=== PATIENT | female | born 1930 | race Caucasian/White ===

== ENCOUNTER 2017-08-22 21:05 | Inpatient (IN) | payer MEDICARE, OTHER ==
[2017-08-22] MEDS ORDERED: Sodium Chloride 0.9% 10 ML Syringe FLUSH PRN (21:47)
[2017-08-22] MEDS ORDERED: Ondansetron 4 MG/2 ML SDV IVPUSH ONE (21:47)
[2017-08-22] MEDS ORDERED: Sodium Chloride 0.9% 1,000 ML IV ONE (21:47)
--- NOTE | 2017-08-22 21:56 | EDM.PDOC ---
ED HPI GENERAL MEDICAL PROBLEM - General Chief Complaint: General Stated Complaint: SHAKES Time Seen by Provider: 08/22/17 21:35 Source of Information: Reports: Patient History Limitations: Reports: No Limitations - History of Present Illness INITIAL COMMENTS - FREE TEXT/NARRATIVE: 87-year-old female presents for evaluation treatment of "shakes". She states that they developed today. She describes the shakes as more or a nervousness. Denies any tremors or rigors. She reports associated symptoms as a of a decreased appetite but denies any fevers, dysuria, nausea, vomiting, weakness, chest pain, cough, shortness of breath, headaches, vision changes, sore throat, earaches, weight loss or weight gain or any heat or cold intolerances. Patient lives at home by herself. Her friend Gerri is present for the entire area she feels that she'll more pale than normal. Patient is only on Remeron and Exelon. She is on Exelon for Alzheimer's. Primary care provider is Dr. Lester. Onset: Today - Related Data Allergies Allergy/AdvReac Type Severity Reaction Status Date / Time No Known Allergies Allergy Verified 02/14/16 08:54 Home Meds: Home Meds Mirtazapine 15 mg PO BEDTIME 08/22/17 [History] Rivastigmine 1 each TD DAILY 08/22/17 [History] Past Medical History [employer] History: Reports: Psychiatric History: Reports: Anxiety Social & Family History - Tobacco Use Smoking Status *Q: Never Smoker Second Hand Smoke Exposure: No - Caffeine Use Caffeine Use: Reports: Coffee - Recreational Drug Use Recreational Drug Use: No ED ROS GENERAL - Review of Systems Review Of Systems: See Below Constitutional: Reports: Decreased Appetite. Denies: Fever, Chills, Malaise, Weakness, Diaphoresis, Weight Loss, Weight Gain HEENT: Denies: Ear Pain, Throat Pain, Vision Change Respiratory: Denies: Shortness of Breath, Cough Cardiovascular: Denies: Chest Pain, Lightheadedness, Syncope Endocrine: Reports: Other (no heat or cold intolerances) GI/Abdominal: Denies: Abdominal Pain, Nausea, Vomiting : Denies: Dysuria, Flank Pain, Hematuria Neurological: Denies: Dizziness, Headache, Numbness, Syncope, Tingling, Weakness ED EXAM, GENERAL - Physical Exam Exam: See Below Exam Limited By: No Limitations General Appearance: Alert, WD/WN, No Apparent Distress, Thin Eye Exam: Bilateral Eye: Normal Inspection Ears: Normal External Exam, Normal Canal, Hearing Grossly Normal, Normal TMs Nose: Normal Inspection Throat/Mouth: Normal Inspection, Normal Lips, Normal Oropharynx, Normal Voice, No Airway Compromise Neck: Normal Inspection, Full Range of Motion Respiratory/Chest: No Respiratory Distress, Lungs Clear, Normal Breath Sounds Cardiovascular: Normal Peripheral Pulses, Regular Rate, Rhythm, No Murmur GI/Abdominal: Normal Bowel Sounds, Soft, Non-Tender Extremities: Normal Inspection, Other (no tremor appreciated) Neurological: Alert, Oriented, CN II-XII Intact, Normal Cognition, Other (hand glove cleaner 5 /5 bilaterally, dorsiflexion 5/5 bilaterally, plantar flexion 5/5 bilaterally, no facial droop, no slurred speech, normal heel to red testing, normal finger to nose testing) Psychiatric: Normal Affect, Normal Mood Skin Exam: Warm, Dry, Pallor EKG INTERPRETATION EKG Date: 08/22/17 Time: 21:55 Rhythm: NSR Rate (Beats/Min): 70 Winn: Normal P-Wave: Present QRS: Normal ST-T: Normal QT: Normal EKG Interpretation Comments: NSR at 70 bpm. No acute changes. Reviewed by myself and Dr. Wright Course - Vital Signs Last Recorded V/S: Last Vital Signs Temp 36.0 C 08/22/17 21:13 Pulse 69 08/22/17 21:13 Resp 24 H 08/22/17 21:13 BP 157/88 H 08/22/17 21:13 Pulse Ox 99 08/22/17 21:13 Orthostatic Blood Pressure [ 127/81 Standing] Orthostatic Blood Pressure [ 131/85 Sitting] Orthostatic Blood Pressure [ 140/90 Supine] - Orders/Labs/Meds Orders: Active Orders 24 hr Category Date Time Status Cardiac Monitoring [RC] . DIRECTED Care 08/22/17 21:48 Ordered EKG 12 Lead [EKG Documentation Completion] [RC] STAT Care 08/22/17 21:47 Ordered Orthostatic Vital Signs [RC] ASDIRECTED Care 08/22/17 21:51 Ordered Peripheral IV Care [RC] . DIRECTED Care 08/22/17 21:47 Ordered Chest 1V Frontal [CR] Stat Exams 08/22/17 21:49 Ordered CULTURE URINE [RM] Stat Lab 08/22/17 23:46 Ordered Sodium Chloride 0.9% [Normal Saline] 1,000 ml Med 08/22/17 21:47 Active IV ONETIME Sodium Chloride 0.9% [Saline Flush] Med 08/22/17 21:47 Ordered 10 ml FLUSH ASDIRECTED PRN Peripheral IV Insertion Adult [OM.PC] Routine Oth 08/22/17 21:47 Ordered EKG 12 Lead [EK] Stat Ther 08/22/17 21:48 Ordered Medication Orders Sodium Chloride (Normal Saline) 1,000 mls @ 100 mls/hr IV ONETIME ONE Stop: 08/23/17 07:46 Last Admin: 08/22/17 21:57 Dose: 100 mls/hr Sodium Chloride (Saline Flush) 10 ml FLUSH ASDIRECTED PRN PRN Reason: Keep Vein Open Last Admin: 08/22/17 21:58 Dose: 10 ml Labs: Laboratory Tests 08/22/17 08/22/17 08/22/17 Range/Units 21:15 21:50 21:50 WBC 10.21 H (3.98-10.04) K/mm3 RBC 4.09 (3.98-5.22) M/mm3 Hgb 12.2 (11.2-15.7) gm/L Hct 35.6 (34.1-44.9) % MCV 87.0 (79.4-94.8) fl MCH 29.8 (25.6-32.2) pg MCHC 34.3 (32.2-35.5) g/dl RDW Std Deviation 42.0 (36.4-46.3) fL Plt Count 226 (182-369) K/mm3 MPV 10.1 (9.4-12.3) fl Neutrophils % (Manual) 78 H (40-60) % Band Neutrophils % 0 (0-10) % Lymphocytes % (Manual) 17 L (20-40) % Atypical Lymphs % 0 % Monocytes % (Manual) 5 (2-10) % Eosinophils % (Manual) 0 L (0.7-5.8) % Basophils % (Manual) 0 L (0.1-1.2) Platelet Estimate Adequate RBC Morph Comment Normal Sodium 143 (136-145) mEq/L Potassium 4.1 (3.5-5.1) mEq/L Chloride 106 (98-107) mEq/L Carbon Dioxide 24 (21-32) mEq/L Anion Gap 17.1 H (5-15) BUN 19 H (7-18) mg/dL Creatinine 0.7 (0.55-1.02) mg/dL Est Cr Clr Drug Dosing 42.07 mL/min Estimated GFR (MDRD) > 60 (>60) mL/min BUN/Creatinine Ratio 27.1 H (14-18) Glucose 159 H (83-115) mg/dL POC Glucose 147 H (83-110) mg/dL Calcium 8.7 (8.5-10.1) mg/dL Magnesium 2.2 (1.8-2.4) mg/dl Total Bilirubin 0.4 (0.2-1.0) mg/dL AST 16 (15-37) U/L ALT 19 (14-59) U/L Alkaline Phosphatase 58 (46-116) U/L Troponin I < 0.017 (0.00-0.056) ng/mL NT-Pro-B Natriuret Pep (0-450) pg/mL Total Protein 6.6 (6.4-8.2) g/dl Albumin 3.9 (3.4-5.0) g/dl Globulin 2.7 gm/dL Albumin/Globulin Ratio 1.4 (1-2) TSH 3rd Generation 2.034 (0.358-3.74) uIU/mL Urine Color (Yellow) Urine Appearance (Clear) Urine pH (5.0-8.0) Ur Specific Steger (1.005-1.030) Urine Protein (Negative) Urine Glucose (UA) (Negative) Urine Ketones (Negative) Urine Occult Blood (Negative) Urine Nitrite (Negative) Urine Bilirubin (Negative) Urine Urobilinogen (0.2-1.0) Ur Leukocyte Esterase (Negative) Urine RBC (0-5) /hpf Urine WBC (0-5) /hpf Ur Epithelial Cells (0-5) /hpf Urine Bacteria (FEW) /hpf Urine Mucus (FEW) /hpf 08/22/17 08/22/17 Range/Units 21:50 22:50 WBC (3.98-10.04) K/mm3 RBC (3.98-5.22) M/mm3 Hgb (11.2-15.7) gm/L Hct (34.1-44.9) % MCV (79.4-94.8) fl MCH (25.6-32.2) pg MCHC (32.2-35.5) g/dl RDW Std Deviation (36.4-46.3) fL Plt Count (182-369) K/mm3 MPV (9.4-12.3) fl Neutrophils % (Manual) (40-60) % Band Neutrophils % (0-10) % Lymphocytes % (Manual) (20-40) % Atypical Lymphs % % Monocytes % (Manual) (2-10) % Eosinophils % (Manual) (0.7-5.8) % Basophils % (Manual) (0.1-1.2) Platelet Estimate RBC Morph Comment Sodium (136-145) mEq/L Potassium (3.5-5.1) mEq/L Chloride (98-107) mEq/L Carbon Dioxide (21-32) mEq/L Anion Gap (5-15) BUN (7-18) mg/dL Creatinine (0.55-1.02) mg/dL Est Cr Clr Drug Dosing mL/min Estimated GFR (MDRD) (>60) mL/min BUN/Creatinine Ratio (14-18) Glucose (83-115) mg/dL POC Glucose (83-110) mg/dL Calcium (8.5-10.1) mg/dL Magnesium (1.8-2.4) mg/dl Total Bilirubin (0.2-1.0) mg/dL AST (15-37) U/L ALT (14-59) U/L Alkaline Phosphatase (46-116) U/L Troponin I (0.00-0.056) ng/mL NT-Pro-B Natriuret Pep 193 (0-450) pg/mL Total Protein (6.4-8.2) g/dl Albumin (3.4-5.0) g/dl Globulin gm/dL Albumin/Globulin Ratio (1-2) TSH 3rd Generation (0.358-3.74) uIU/mL Urine Color Yellow (Yellow) Urine Appearance Clear (Clear) Urine pH 7.0 (5.0-8.0) Ur Specific Steger 1.025 (1.005-1.030) Urine Protein Negative (Negative) Urine Glucose (UA) Negative (Negative) Urine Ketones 1+ H (Negative) Urine Occult Blood Negative (Negative) Urine Nitrite Negative (Negative) Urine Bilirubin Negative (Negative) Urine Urobilinogen 0.2 (0.2-1.0) Ur Leukocyte Esterase Negative (Negative) Urine RBC 0-5 (0-5) /hpf Urine WBC 0-5 (0-5) /hpf Ur Epithelial Cells 0-5 (0-5) /hpf Urine Bacteria Moderate H (FEW) /hpf Urine Mucus Few (FEW) /hpf Meds: Medications Generic Name Dose Route Start Last Admin Trade Name Freq PRN Reason Stop Dose Admin Sodium Chloride 1,000 mls @ 100 mls/hr 08/22/17 21:47 08/22/17 21:57 Normal Saline IV 08/23/17 07:46 100 mls/hr ONETIME ONE Administration Sodium Chloride 10 ml 08/22/17 21:47 08/22/17 21:58 Saline Flush FLUSH 10 ml ASDIRECTED PRN Administration Keep Vein Open Discontinued Medications Generic Name Dose Route Start Last Admin Trade Name Freq PRN Reason Stop Dose Admin Lorazepam 0.5 mg 08/23/17 00:14 Ativan IVPUSH 08/23/17 00:15 ONETIME ONE Ondansetron HCl 4 mg 08/22/17 21:47 08/22/17 21:58 Zofran IVPUSH 08/22/17 21:48 4 mg ONETIME ONE Administration - Radiology Interpretation Free Text/Narrative:: chest xray 1 view reviewed by myself and Dr. Wright. No acute infiltrates. Calcified area in right middle lobe - Re-Assessments/Exams Free Text/Narrative Re-Assessment/Exam: 08/22/17 21:51 Moments after walking out of the room nursing staff informed me that she bradycardia down into the 30s. I Went to see the patient. She is nauseous and vomited. She does look pale. Added on EKG, chest x-ray and additional lab work. Will continue to monitor on the cardiac surgeon. Possible that she had a vasovagal episode however, cannot exclude other arrhythmias 08/23/17 00:16 Patient's nausea and vomiting have improved. Her labs have returned. She's not had any additional bradycardic episodes. I discussed with the patient and her friend disposition. She could possibly go home. She lives at home by herself in both her and her friend her nurse about her returning home tonight. Will see about for observation. Discussed case with Dr. Jaime, hospitalist on-call. She agrees to an observation admission. I discussed this with patient. She is requesting something for the nervousness. We'll give her 0.5 mg Ativan. Departure - Departure Time of Disposition: 00:19 Disposition: Refer to Observation Condition: Fair Clinical Impression: Anxiety, Vaso vagal episode - Discharge Information Referrals: Trav Díaz MD [Primary Care Provider] - Forms: ED Department Discharge Additional Instructions: Patient admitted for observation due to bradycardic episode in the 30s. Dr. Jaime admitting. - My Orders Last 24 Hours: My Active Orders 08/22/17 21:47 EKG 12 Lead [EKG Documentation Completion] [RC] STAT Peripheral IV Care [RC] . DIRECTED Sodium Chloride 0.9% [Normal Saline] 1,000 ml IV ONETIME Sodium Chloride 0.9% [Saline Flush] 10 ml FLUSH ASDIRECTED PRN Peripheral IV Insertion Adult [OM.PC] Routine 08/22/17 21:48 Cardiac Monitoring [RC] . DIRECTED EKG 12 Lead [EK] Stat 08/22/17 21:49 Chest 1V Frontal [CR] Stat 08/22/17 21:51 Orthostatic Vital Signs [RC] ASDIRECTED 08/22/17 23:46 CULTURE URINE [RM] Stat - Assessment/Plan Last 24 Hours: My Active Orders 08/22/17 21:47 EKG 12 Lead [EKG Documentation Completion] [RC] STAT Peripheral IV Care [RC] . DIRECTED Sodium Chloride 0.9% [Normal Saline] 1,000 ml IV ONETIME Sodium Chloride 0.9% [Saline Flush] 10 ml FLUSH ASDIRECTED PRN Peripheral IV Insertion Adult [OM.PC] Routine 08/22/17 21:48 Cardiac Monitoring [RC] . DIRECTED EKG 12 Lead [EK] Stat 08/22/17 21:49 Chest 1V Frontal [CR] Stat 08/22/17 21:51 Orthostatic Vital Signs [RC] ASDIRECTED 08/22/17 23:46 CULTURE URINE [RM] Stat
[2017-08-23] MEDS ORDERED: LORazepam 2 MG/ML MDV IVPUSH ONE (00:14)
--- NOTE | 2017-08-23 07:48 | PCM.HP ---
H&P History of Present Illness - General Date of Service: 08/23/17 Admit Problem/Dx: Admission Diagnosis/Problem Admission Diagnosis/Problem Vasovagal near-syncope Source of Information: Provider History Limitations: Reports: Other (dementia) - History of Present Illness Initial Comments - Free Text/Narative: 87 year old female, confused without clear understanding of why she was brought to the hospital. She was brought in by Gerri Ely las night. She only reports the "shakes" for her reason for being in the hospital. She had transient bradycardia with reportedly nausea. Apparently she is on meds for Alzheimers dementia. An infectious work up will; be started, it would appear that she may require SNF, that is as yet undetermined. Onset of Symptoms: Reports: Unknown/Unsure Location: Reports: Generalized Associated Symptoms: Reports: Confusion - Related Data Allergies/Adverse Reactions: Allergies Allergy/AdvReac Type Severity Reaction Status Date / Time No Known Allergies Allergy Verified 02/14/16 08:54 Home Medications: Home Meds Mirtazapine 15 mg PO BEDTIME 08/22/17 [History] Rivastigmine 1 each TD DAILY 08/22/17 [History] Past Medical History [employer] History: Reports: Psychiatric History: Reports: Anxiety Social & Family History - Family History Family Medical History: Noncontributory - Tobacco Use Smoking Status *Q: Never Smoker Second Hand Smoke Exposure: No - Caffeine Use Caffeine Use: Reports: Coffee, Tea Other Caffeine Use: 1 or 2 cups every day - Recreational Drug Use Recreational Drug Use: No H&P Review of Systems - Review of Systems: Review Of Systems: Unable To Obtain Exam - Exam Exam: See Below - Vital Signs Vital Signs: Last Vital Signs Temp 36.8 C 08/23/17 03:48 Pulse 85 08/23/17 03:48 Resp 16 08/23/17 03:48 BP 114/65 08/23/17 03:48 Pulse Ox 93 L 08/23/17 03:48 Weight: 45.45 kg - Exam Quality Assessment: DVT Prophylaxis General: Alert, Oriented (self), Cooperative HEENT: EOMI, Nares Patent, Normal Nasal Septum, Pupils Equal, Pupils Reactive, PERRLA Neck: Supple, Trachea Midline Lungs: Normal Respiratory Effort Cardiovascular: Regular Rate, Regular Rhythm GI/Abdominal Exam: Normal Bowel Sounds, Soft, Non-Tender, No Organomegaly, No Distention (Female) Exam: Deferred Rectal (Female) Exam: Deferred Back Exam: Normal Inspection Extremities: Normal Inspection, No Pedal Edema Neurological: Cranial Nerves Intact Neuro Extensive - Mental Status: Alert Neuro Extensive - Motor, Sensory, Reflexes: CN II-XII Intact Psychiatric: Alert - Patient Data Lab Results Last 24 hrs: Laboratory Results - last 24 hr 08/23/17 08/23/17 Range/Units 05:34 05:34 WBC 9.93 (3.98-10.04) K/mm3 RBC 4.11 (3.98-5.22) M/mm3 Hgb 11.8 (11.2-15.7) gm/L Hct 35.7 (34.1-44.9) % MCV 86.9 (79.4-94.8) fl MCH 28.7 (25.6-32.2) pg MCHC 33.1 (32.2-35.5) g/dl RDW Std Deviation 41.5 (36.4-46.3) fL Plt Count 205 (182-369) K/mm3 MPV 10.1 (9.4-12.3) fl Sodium 145 (136-145) mEq/L Potassium 4.3 (3.5-5.1) mEq/L Chloride 110 H (98-107) mEq/L Carbon Dioxide 24 (21-32) mEq/L Anion Gap 15.3 H (5-15) BUN 13 (7-18) mg/dL Creatinine 0.6 (0.55-1.02) mg/dL Est Cr Clr Drug Dosing 49.18 mL/min Estimated GFR (MDRD) > 60 (>60) mL/min BUN/Creatinine Ratio 21.7 H (14-18) Glucose 124 H (83-115) mg/dL Calcium 8.4 L (8.5-10.1) mg/dL Magnesium 2.2 (1.8-2.4) mg/dl Troponin I < 0.017 (0.00-0.056) ng/mL Result Diagrams: 08/23/17 05:34 08/23/17 05:34 *Q Meaningful Use (ADM) - VTE *Q VTE Criteria *Q: - Stroke *Q Stroke Criteria *Q: - AMI *Q AMI Criteria *Q: - Problem List (1) Anxiety SNOMED Code(s): 31537420 ICD Code: F41.9 - ANXIETY DISORDER, UNSPECIFIED Status: Acute Current Visit: Yes (2) Vaso vagal episode SNOMED Code(s): 500487283 ICD Code: R55 - SYNCOPE AND COLLAPSE Status: Acute Current Visit: Yes Problem List Initiated/Reviewed/Updated: Yes Orders Last 24hrs: Active Orders 24 hr Category Date Time Status Vital Signs [RC] PER UNIT ROUTINE Care 08/23/17 07:35 Ordered Full Liquid Diet [DIET] Diet 08/23/17 Lunch Ordered BMP [BASIC METABOLIC PANEL,BMP] [CHEM] DAILY Lab 08/24/17 05:00 Ordered BMP [BASIC METABOLIC PANEL,BMP] [CHEM] DAILY Lab 08/25/17 05:00 Ordered BMP [BASIC METABOLIC PANEL,BMP] [CHEM] DAILY Lab 08/26/17 05:00 Ordered CBC WITH AUTO DIFF [HEME] DAILY Lab 08/24/17 05:00 Ordered CBC WITH AUTO DIFF [HEME] DAILY Lab 08/25/17 05:00 Ordered CBC WITH AUTO DIFF [HEME] DAILY Lab 08/26/17 05:00 Ordered CRP [C-REACTIVE PROTEIN] [CHEM] Routine Lab 08/24/17 05:00 Ordered INFLUENZA A+B AG SCREEN [RM] Routine Lab 08/23/17 07:41 Uncollected LIPID PANEL [CHEM] Routine Lab 08/24/17 05:00 Ordered MYCOPLASMA PNEUMONIAE IGM AB [CHEM] Routine Lab 08/24/17 05:00 Ordered Mirtazapine [Remeron] Med 08/23/17 21:00 Ordered 15 mg PO BEDTIME Sodium Chloride 0.9% [Normal Saline] 1,000 ml Med 08/23/17 02:15 Active IV ASDIRECTED Code Status [Resuscitation Status] Routine Resus Stat 08/23/17 02:24 Ordered Medication Orders Sodium Chloride (Normal Saline) 1,000 mls @ 75 mls/hr IV ASDIRECTED LIOR Mirtazapine (Remeron) 15 mg PO BEDTIME LIOR Sodium Chloride (Saline Flush) 10 ml FLUSH ASDIRECTED PRN PRN Reason: Keep Vein Open Last Admin: 08/22/17 21:58 Dose: 10 ml Assessment/Plan Comment:: Impression: Extremely poor historian, does not know why she is in the hospital Vagal response with N/V, no presyncopal, syncopal episode pre admission. Confusion, unknown baseline; history of dementia; TSH~WNL Plan: Obs with telemetry IVF Infectious work up SW/PT/OT consult? DVT/GI prophylaxis
[2017-08-23] MEDS: Sodium Chloride 0.9% 1,000 ML IV SCH ×2 (08:09→23:51)
--- NOTE | 2017-08-23 10:14 | PCM.SN ---
- Free Text/Narrative Note: Patient seen and examined at bedside. She has no acute issues but confused. Unclear what her baseline level was. Spoke to her son Ramakrishna and updated him about mom's clinical status. Ramakrishna also gave me permission to speak with Gerri Ely as acting DPOA. Informed Ramakrishna and Gerri she is not safe to go home at this point.
[2017-08-23] MEDS: Mirtazapine 15 MG Tab PO SCH (20:48)
[2017-08-23] MEDS ORDERED: Temazepam 15 MG Cap PO ONE (21:38)
--- NOTE | 2017-08-24 07:48 | PCM.PN ---
- General Info Date of Service: 08/24/17 Admission Dx/Problem (Free Text): Admission Diagnosis/Problem Admission Diagnosis/Problem Vasovagal near-syncope Subjective Update: Follow Up Functional Status: Reports: Pain Controlled, Tolerating Diet, Ambulating, Urinating. Denies: New Symptoms - Review of Systems General: Denies: Fever, Weakness, Fatigue, Malaise, Chills HEENT: Reports: No Symptoms Pulmonary: Denies: Shortness of Breath Cardiovascular: Denies: Chest Pain Gastrointestinal: Denies: Abdominal Pain, Nausea, Vomiting Genitourinary: Reports: No Symptoms Musculoskeletal: Reports: No Symptoms Skin: Reports: No Symptoms Neurological: Denies: Confusion, Difficulty Walking, Weakness, Gait Disturbance Psychiatric: Denies: Depression, Mood Lability, Anxiety, Agitation Systems Review Comment:: No significant overnight or acute issues. She seems to be at baseline. She is very engaging with good sense of humor. She appears to be less confused today. Her vitals are stable. She has no new complaints. - Patient Data Vitals - Most Recent: Last Vital Signs Temp 37.1 C 08/23/17 20:39 Pulse 64 08/23/17 20:39 Resp 14 08/23/17 20:39 BP 99/74 08/23/17 20:39 Pulse Ox 96 08/23/17 20:39 Weight - Most Recent: 46.493 kg I&O - Last 24 Hours: Intake & Output 08/23/17 08/24/17 08/24/17 22:59 06:59 14:59 Intake Total 1457 875 Output Total 700 1150 Balance 757 -275 Lab Results Last 24 Hours: Laboratory Results - last 24 hr 08/24/17 Range/Units 06:20 WBC 6.59 (3.98-10.04) K/mm3 RBC 4.03 (3.98-5.22) M/mm3 Hgb 11.7 (11.2-15.7) gm/L Hct 35.8 (34.1-44.9) % MCV 88.8 (79.4-94.8) fl MCH 29.0 (25.6-32.2) pg MCHC 32.7 (32.2-35.5) g/dl RDW Std Deviation 44.0 (36.4-46.3) fL Plt Count 185 (182-369) K/mm3 MPV 10.3 (9.4-12.3) fl Neut % (Auto) 71.4 H (34.0-71.1) % Lymph % (Auto) 17.8 L (19.3-51.7) % [place] % (Auto) 8.5 (4.7-12.5) % Eos % (Auto) 1.8 (0.7-5.8) Baso % (Auto) 0.2 (0.1-1.2) % Neut # (Auto) 4.71 (1.56-6.13) K/mm3 Lymph # (Auto) 1.17 L (1.18-3.74) K/mm3 [place] # (Auto) 0.56 H (0.24-0.36) K/mm3 Eos # (Auto) 0.12 (0.04-0.36) K/mm3 Baso # (Auto) 0.01 (0.01-0.08) K/mm3 Med Orders - Current: Current Medications Sodium Chloride (Normal Saline) 1,000 mls @ 75 mls/hr IV ASDIRECTED LIOR Last Admin: 08/23/17 23:51 Dose: 75 mls/hr Mirtazapine (Remeron) 15 mg PO BEDTIME LIOR Last Admin: 08/23/17 20:48 Dose: 15 mg Non-Formulary Medication (Rivastigmine [Rivastigmine]) 1 each TD DAILY LIOR Sodium Chloride (Saline Flush) 10 ml FLUSH ASDIRECTED PRN PRN Reason: Keep Vein Open Last Admin: 08/22/17 21:58 Dose: 10 ml Discontinued Medications Sodium Chloride (Normal Saline) 1,000 mls @ 100 mls/hr IV ONETIME ONE Stop: 08/23/17 07:46 Last Admin: 08/22/17 21:57 Dose: 100 mls/hr Lorazepam (Ativan) 0.5 mg IVPUSH ONETIME ONE Stop: 08/23/17 00:15 Last Admin: 08/23/17 00:20 Dose: 0.5 mg Ondansetron HCl (Zofran) 4 mg IVPUSH ONETIME ONE Stop: 08/22/17 21:48 Last Admin: 08/22/17 21:58 Dose: 4 mg Temazepam (Restoril) 15 mg PO ONETIME ONE Stop: 08/23/17 21:39 Last Admin: 08/23/17 21:51 Dose: 15 mg - Exam General: Alert, Cooperative, No Acute Distress HEENT: Pupils Equal, Pupils Reactive, EOMI, Mucous Membr. Moist/[place] Neck: Supple, Trachea Midline, No JVD, No Thyromegaly Lungs: Clear to Auscultation, Normal Respiratory Effort Cardiovascular: Regular Rate, Regular Rhythm GI/Abdominal Exam: Normal Bowel Sounds, Soft, Non-Tender, No Organomegaly, No Distention, No Abnormal Bruit (Female) Exam: Deferred Back Exam: Normal Inspection, Decreased Range of Motion Extremities: Normal Inspection, Normal Range of Motion, Non-Tender, No Pedal Edema, Normal Capillary Refill Peripheral Pulses: 2+: Dorsalis Pedis (L), Dorsalis Pedis (R) Skin: Warm, Dry, Intact Neurological: No New Focal Deficit Psy/Mental Status: Alert, Normal Affect, Normal Mood - Problem List Review Problem List Initiated/Reviewed/Updated: Yes - My Orders Last 24 Hours: My Active Orders 08/23/17 13:13 One To One Therapy [BH] Routine 08/23/17 17:10 Consult to Occupational Therapy [OT Evaluation and Treatment] [CONS] Routine Consult to Speech Language Pathology [OIL AND GAS WELL TREATMENT OPERATOR Evaluation and Treatment] [CONS] Routine PT Evaluation and Treatment [CONS] Routine 08/23/17 17:11 Consult to Case Management [CONS] Routine Consult to Drawing Box Tender [CONS] Routine 08/23/17 22:13 Antiembolic Devices [RC] PER UNIT ROUTINE SCD [Sequential Compression Device] [OM.PC] Routine 08/23/17 22:19 Up With Assistance [RC] ASDIRECTED 08/24/17 09:00 Rivastigmine [Rivastigmine] 1 each TD DAILY 08/24/17 Breakfast Regular Diet [DIET] - Plan Plan:: Assessment/Plan: 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 - Likely worsening due to disease progression - She is only on Exelon patch for maintenance medications Resolved: S/p Vagal Response with N/V - No presyncopal, Syncopal episode pre admission S/p Confusion, unknown baseline; history of dementia; TSH~WNL S/p Bradycardia - HR noted in the 30s, one time episode only - HRs have been pretty stable since admission - Will d/c telemetry Chronic: Depression, on Remerone Plan: She is clinically stable and much better this morning Continue current treatment May d/c 1:1 if no longer confused but would recommend routine checks Saline Lock PT/OT consult OIL AND GAS WELL TREATMENT OPERATOR for COG eval CM/SW for d/c planning DVT/GI prophylaxis Additional orders as above Code status: 1
[2017-08-24] MEDS: Sodium Chloride 0.9% 1,000 ML IV SCH (12:58)
--- NOTE | 2017-08-24 17:12 | CR ---
Chest: Portable view of the chest was obtained. Comparison: No prior chest x-ray is available. Density is seen within the right lung base most likely due to pleural calcification. Small nodule is noted off the left cardiac margin most likely due to granuloma. Lungs otherwise are clear. Heart is slightly enlarged. Tortuous thoracic aorta is seen. Bony structures are osteopenic. Impression: 1. Findings as noted above. Nothing acute is identified on portable chest x-ray. Diagnostic code #2
[2017-08-24] MEDS: Mirtazapine 15 MG Tab PO SCH (22:47)
[2017-08-25] MEDS: Sodium Chloride 0.9% 1,000 ML IV SCH ×2 (03:18→16:34)
[2017-08-25] MEDS ORDERED: Diphtheria,Pertussis(Acell),Tetanus Vaccine 0.5 ML SDV IM ONE (07:57)
[2017-08-25] MEDS ORDERED: FLU Vacc TS 2017-18 (65yr UP)/PF 180 MCG/0.5 ML Syringe IM ONE (08:15)
--- NOTE | 2017-08-25 08:28 | PCM.PN ---
- General Info Date of Service: 08/25/17 Admission Dx/Problem (Free Text): Admission Diagnosis/Problem Admission Diagnosis/Problem Vasovagal near-syncope Pleasant and talkative this morning; working with PT. No c/o pain. No nausea, moving bowels and voiding. Slept well, nursing voices no concerns overnight. Functional Status: Reports: Pain Controlled, Tolerating Diet, Ambulating, Urinating. Denies: New Symptoms - Review of Systems General: Reports: No Symptoms HEENT: Reports: No Symptoms Pulmonary: Reports: No Symptoms Cardiovascular: Reports: No Symptoms Gastrointestinal: Reports: No Symptoms Genitourinary: Reports: No Symptoms Musculoskeletal: Reports: No Symptoms Skin: Reports: No Symptoms Neurological: Reports: Confusion (baseline) Psychiatric: Reports: No Symptoms, Confusion (baseline) - Patient Data Vitals - Most Recent: Last Vital Signs Temp 97.5 F 08/25/17 02:46 Pulse 63 08/25/17 02:46 Resp 16 08/25/17 02:46 BP 116/75 08/25/17 02:46 Pulse Ox 97 08/25/17 02:46 Weight - Most Recent: 103 lb 14.4 oz I&O - Last 24 Hours: Intake & Output 08/24/17 08/25/17 08/25/17 22:59 06:59 14:59 Intake Total 3150 1027 Output Total 1000 2800 Balance 2150 -1773 Lab Results Last 24 Hours: Laboratory Results - last 24 hr 08/24/17 08/25/17 08/25/17 Range/Units 06:20 05:50 05:50 WBC 6.94 (3.98-10.04) K/mm3 RBC 4.10 (3.98-5.22) M/mm3 Hgb 11.9 (11.2-15.7) gm/L Hct 36.1 (34.1-44.9) % MCV 88.0 (79.4-94.8) fl MCH 29.0 (25.6-32.2) pg MCHC 33.0 (32.2-35.5) g/dl RDW Std Deviation 42.9 (36.4-46.3) fL Plt Count 178 L (182-369) K/mm3 MPV 10.4 (9.4-12.3) fl Neut % (Auto) 72.1 H (34.0-71.1) % Lymph % (Auto) 18.2 L (19.3-51.7) % [place] % (Auto) 7.6 (4.7-12.5) % Eos % (Auto) 1.7 (0.7-5.8) Baso % (Auto) 0.1 (0.1-1.2) % Neut # (Auto) 5.00 (1.56-6.13) K/mm3 Lymph # (Auto) 1.26 (1.18-3.74) K/mm3 [place] # (Auto) 0.53 H (0.24-0.36) K/mm3 Eos # (Auto) 0.12 (0.04-0.36) K/mm3 Baso # (Auto) 0.01 (0.01-0.08) K/mm3 Sodium 146 H (136-145) mEq/L Potassium 4.1 (3.5-5.1) mEq/L Chloride 111 H (98-107) mEq/L Carbon Dioxide 26 (21-32) mEq/L Anion Gap 13.1 (5-15) BUN 16 (7-18) mg/dL Creatinine 0.7 (0.55-1.02) mg/dL Est Cr Clr Drug Dosing 43.71 mL/min Estimated GFR (MDRD) > 60 (>60) mL/min BUN/Creatinine Ratio 22.9 H (14-18) Glucose 95 (83-115) mg/dL Calcium 8.2 L (8.5-10.1) mg/dL Mycoplasma pneumon IgM Negative (NEGATIVE) Med Orders - Current: Current Medications Sodium Chloride (Normal Saline) 1,000 mls @ 75 mls/hr IV ASDIRECTED LIOR Last Admin: 08/25/17 03:18 Dose: 75 mls/hr Mirtazapine (Remeron) 15 mg PO BEDTIME LIOR Last Admin: 08/24/17 22:47 Dose: 15 mg Non-Formulary Medication (Rivastigmine [Rivastigmine]) 1 each TD DAILY [facility] Sodium Chloride (Saline Flush) 10 ml FLUSH ASDIRECTED PRN PRN Reason: Keep Vein Open Last Admin: 08/22/17 21:58 Dose: 10 ml Discontinued Medications Diphtheria/Tetanus/Acell Pertussis (Adacel) 0.5 ml IM .ONCE ONE Stop: 08/25/17 07:58 Sodium Chloride (Normal Saline) 1,000 mls @ 100 mls/hr IV ONETIME ONE Stop: 08/23/17 07:46 Last Admin: 08/22/17 21:57 Dose: 100 mls/hr Influenza Virus Vaccine (Pharmacy To Dose - Influenza Vaccine) 1 each IM ONETIME ONE Stop: 08/25/17 07:58 Influenza Virus Vaccine (Fluzone High-Dose 2017-) 180 mcg IM .ONCE ONE Stop: 08/25/17 08:16 Lorazepam (Ativan) 0.5 mg IVPUSH ONETIME ONE Stop: 08/23/17 00:15 Last Admin: 08/23/17 00:20 Dose: 0.5 mg Ondansetron HCl (Zofran) 4 mg IVPUSH ONETIME ONE Stop: 08/22/17 21:48 Last Admin: 08/22/17 21:58 Dose: 4 mg Temazepam (Restoril) 15 mg PO ONETIME ONE Stop: 08/23/17 21:39 Last Admin: 08/23/17 21:51 Dose: 15 mg - Exam Quality Assessment: DVT Prophylaxis General: Alert, Cooperative, No Acute Distress HEENT: Pupils Equal, EOMI, Mucous Membr. Moist/[place] Neck: Supple Lungs: Clear to Auscultation, Normal Respiratory Effort Cardiovascular: Regular Rate, Regular Rhythm GI/Abdominal Exam: Normal Bowel Sounds, Soft, Non-Tender (Female) Exam: Deferred Extremities: Normal Inspection, No Pedal Edema, Normal Capillary Refill Neurological: No New Focal Deficit, Normal Speech, Normal Tone, Strength Equal Bilateral, Other (baseline dementia; pleasant) Psy/Mental Status: Alert, Normal Affect, Normal Mood - Problem List & Annotations (1) Alzheimer's dementia SNOMED Code(s): 15641018 Code(s): G30.9 - ALZHEIMER'S DISEASE, UNSPECIFIED Status: Chronic Priority: High Current Visit: Yes Qualifiers: Alzheimer's disease onset: unspecified onset Dementia behavioral disturbance: without behavioral disturbance Qualified Code(s): G30.9 - Alzheimer's disease, unspecified; F02.80 - Dementia in other diseases classified elsewhere without behavioral disturbance; F02.80 - Dementia in other diseases classified elsewhere without behavioral disturbance; F02.80 - Dementia in other diseases classified elsewhere without behavioral disturbance (2) Weakness SNOMED Code(s): 56778866 Code(s): R53.1 - WEAKNESS Status: Chronic Priority: High Current Visit : Yes (3) Vaso vagal episode SNOMED Code(s): 187550191 Code(s): R55 - SYNCOPE AND COLLAPSE Status: Resolved Priority: High Current Visit: Yes - Problem List Review Problem List Initiated/Reviewed/Updated: Yes - Plan Plan:: Assessment/Plan: 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 - Greater than 5 years now - Likely worsening due to disease progression - She is only on Exelon patch for maintenance medications Generalized weakness -Improved to resolved -Cont PT/OT -TSH WNL, check vit D level Resolved: S/p Vagal Response with N/V - No presyncopal, Syncopal episode pre admission S/p Confusion, unknown baseline; history of dementia; TSH~WNL S/p Bradycardia - HR noted in the 30s, one time episode only - HRs have been pretty stable since admission - Will d/c telemetry Chronic: Depression, on Remeron Plan: She is clinically stable and improving Continue current treatment Saline Lock PT/OT consult PAPER BALING MACHINE OPERATOR for COG eval CM/SW for d/c planning DVT/GI prophylaxis Additional orders as above Code status: 1
[2017-08-25] MEDS: RIVASTIGMINE 4.6 MG TRDERM SCH (15:31)
[2017-08-25] MEDS ORDERED: Magnesium Hydroxide 400 MG/5 ML Susp 30 ML Cup PO ONE ×2 (20:15→23:15)
[2017-08-25] MEDS: Mirtazapine 15 MG Tab PO SCH (20:50)
--- NOTE | 2017-08-26 07:40 | PCM.DCSUM1 ---
Discharge Summary - Hospital Course Free Text/Narrative:: 87-year-old female presents for evaluation treatment of "shakes". She states that they developed today. She describes the shakes as more or a nervousness. Denies any tremors or rigors. She reports associated symptoms as a of a decreased appetite but denies any fevers, dysuria, nausea, vomiting, weakness, chest pain, cough, shortness of breath, headaches, vision changes, sore throat, earaches, weight loss or weight gain or any heat or cold intolerances. Patient lives at home by herself. Her friend Gerri is present for the entire area she feels that she'll more pale than normal. Patient is only on Remeron and Exelon. She is on Exelon for Alzheimer's. Primary care provider is Dr. Herr. Hospitalist service is consulted for admission and further workup/evaluation- r/ o infectious cause. All evaluation for infectious cause were negative including CXR, blood cultures , UA, mycoplasma. Patient has hx of dementia x at least 5 years. Remeron dose was increased from 7.5mg to 15mg with improvements in shakiness. Patient was very pleasant during her stay. Labs were essentially unremarkable or negative during her stay for any acute processes. Normal TSH, normal to excellent cholesterol, negative troponins and EKG. PT/OT worked with patient. HEATING WORKER did cognitive evaluation revealing moderate to severe cognitive impairment with recommendations for / supervision. SW worked with patient's family who lives out of town/formerly [facility]. They are unable to come to town for 5 days but have made arrangements with friends to stay with patient/supervise until they are able to come to make other arrangements, possible [facility] vs SNF for patient. Recommend patient follow up with PCP, Dr. Herr within 3-5 days of discharge. - Discharge Data Discharge Date: 08/26/17 (admit date 08/23/17) Discharge Disposition: Home, Self-Care 01 Condition: Good - Discharge Diagnosis/Problem(s) (1) Alzheimer's dementia SNOMED Code(s): 81834776 ICD Code: G30.9 - ALZHEIMER'S DISEASE, UNSPECIFIED Status: Chronic Priority: High Current Visit: Yes Qualifiers: Alzheimer's disease onset: unspecified onset Dementia behavioral disturbance: without behavioral disturbance Qualified Code(s): G30.9 - Alzheimer's disease, unspecified; F02.80 - Dementia in other diseases classified elsewhere without behavioral disturbance; F02.80 - Dementia in other diseases classified elsewhere without behavioral disturbance; F02.80 - Dementia in other diseases classified elsewhere without behavioral disturbance (2) Weakness SNOMED Code(s): 89916129 ICD Code: R53.1 - WEAKNESS Status: Chronic Priority: High Current Visit : Yes (3) Vaso vagal episode SNOMED Code(s): 257914713 ICD Code: R55 - SYNCOPE AND COLLAPSE Status: Resolved Priority: High Current Visit: Yes - Patient Summary/Data Operative Procedure(s) Performed: None Complications: None Consults: Consultations 08/23/17 17:10 Consult to Occupational Therapy [OT Evaluation and Treatment] [CONS] Routine Consult to Speech Language Pathology [HEATING WORKER Evaluation and Treatment] [CONS] Routine PT Evaluation and Treatment [CONS] Routine 08/23/17 17:11 Consult to Case Management [CONS] Routine Consult to Licensed Optical Dispenser [CONS] Routine Labs Pending at D/C: None Recommended Follow-up Testing/Procedures: Follow up with PCP, Dr. Herr within 3-5 days of discharge. Consider Assisted living facility or half-way facility as therapies recommend 24/7 supervision due to memory impairment/cognitive impairment. Family has arranged help for patient at home until they are able to come. Planned Operative Procedure(s) after DC: None Hospital Course: As above - Patient Instructions Diet: Usual Diet as Tolerated Activity: As Tolerated Driving: Do Not Drive Showering/Bathing: May Shower Notify Provider of: Fever, Increased Pain, Nausea and/or Vomiting - Discharge Plan Prescriptions/Med Rec: Mirtazapine [Remeron] 15 mg PO BEDTIME #30 tablet Home Medications: Home Meds Rivastigmine [Exelon] 4.6 mg TD DAILY 08/24/17 [History] Mirtazapine [Remeron] 15 mg PO BEDTIME #30 tablet 08/26/17 [Rx] Patient Handouts: Bradycardia, Weakness, [id number], Near-Syncope, Easy-to- Read Forms: ED Department Discharge Referrals: Trav Díaz MD [Primary Care Provider] - Zenaida Haines MD [Ordering Only Provider] - 09/23/17 1:00 pm (This appt. is in [facility] central time.) - Discharge Summary/Plan Comment DC Time >30 min.: Yes (40 min) - General Info Date of Service: 08/26/17 Admission Dx/Problem (Free Text: Admission Diagnosis/Problem Admission Diagnosis/Problem Vasovagal near-syncope Pleasant and talkative this morning. Patient was awake most of the night per nursing, visiting and ambulating in hallways with assistance. No c/o pain. No nausea, moving bowels and voiding. Plans for DC home today with friend/family Functional Status: Reports: Pain Controlled, Tolerating Diet, Ambulating, Urinating. Denies: New Symptoms - Review of Systems General: Reports: No Symptoms HEENT: Reports: No Symptoms Pulmonary: Reports: No Symptoms Cardiovascular: Reports: No Symptoms Gastrointestinal: Reports: No Symptoms Genitourinary: Reports: No Symptoms Musculoskeletal: Reports: No Symptoms Skin: Reports: No Symptoms Neurological: Reports: Confusion Psychiatric: Reports: Confusion - Patient Data Vitals - Most Recent: Last Vital Signs Temp 98.4 F 08/26/17 07:20 Pulse 85 08/26/17 07:20 Resp 14 08/26/17 07:20 BP 127/78 08/26/17 03:45 Pulse Ox 98 08/26/17 07:20 Weight - Most Recent: 103 lb 3.2 oz I&O - Last 24 hours: Intake & Output 08/25/17 08/26/17 08/26/17 22:59 06:59 14:59 Intake Total 1619 773 Output Total 1700 1200 Balance -81 -427 Lab Results - Last 24 hrs: Laboratory Results - last 24 hr 08/26/17 08/26/17 Range/Units 05:50 05:50 WBC 9.66 (3.98-10.04) K/mm3 RBC 4.50 (3.98-5.22) M/mm3 Hgb 13.2 (11.2-15.7) gm/L Hct 39.2 (34.1-44.9) % MCV 87.1 (79.4-94.8) fl MCH 29.3 (25.6-32.2) pg MCHC 33.7 (32.2-35.5) g/dl RDW Std Deviation 42.4 (36.4-46.3) fL Plt Count 218 (182-369) K/mm3 MPV 10.5 (9.4-12.3) fl Neut % (Auto) 74.1 H (34.0-71.1) % Lymph % (Auto) 16.7 L (19.3-51.7) % [place] % (Auto) 7.7 (4.7-12.5) % Eos % (Auto) 1.1 (0.7-5.8) Baso % (Auto) 0.1 (0.1-1.2) % Neut # (Auto) 7.16 H (1.56-6.13) K/mm3 Lymph # (Auto) 1.61 (1.18-3.74) K/mm3 [place] # (Auto) 0.74 H (0.24-0.36) K/mm3 Eos # (Auto) 0.11 (0.04-0.36) K/mm3 Baso # (Auto) 0.01 (0.01-0.08) K/mm3 Sodium 143 (136-145) mEq/L Potassium 4.2 (3.5-5.1) mEq/L Chloride 107 (98-107) mEq/L Carbon Dioxide 25 (21-32) mEq/L Anion Gap 15.2 H (5-15) BUN 15 (7-18) mg/dL Creatinine 0.6 (0.55-1.02) mg/dL Est Cr Clr Drug Dosing 50.66 mL/min Estimated GFR (MDRD) > 60 (>60) mL/min BUN/Creatinine Ratio 25.0 H (14-18) Glucose 105 (83-115) mg/dL Calcium 9.0 (8.5-10.1) mg/dL Med Orders - Current: Current Medications Mirtazapine (Remeron) 15 mg PO BEDTIME [facility] Last Admin: 08/25/17 20:50 Dose: 15 mg Rivastigmine [ Rivastigmine] 4.6 Mg Each 0 each TRDERM DAILY [facility] Last Admin: 08/25/17 15:31 Dose: Not Given Sodium Chloride (Saline Flush) 10 ml FLUSH ASDIRECTED PRN PRN Reason: Keep Vein Open Last Admin: 08/22/17 21:58 Dose: 10 ml Discontinued Medications Diphtheria/Tetanus/Acell Pertussis (Adacel) 0.5 ml IM .ONCE ONE Stop: 08/25/17 07:58 Sodium Chloride (Normal Saline) 1,000 mls @ 100 mls/hr IV ONETIME ONE Stop: 08/23/17 07:46 Last Admin: 08/22/17 21:57 Dose: 100 mls/hr Sodium Chloride (Normal Saline) 1,000 mls @ 75 mls/hr IV ASDIRECTED LIOR Last Admin: 08/25/17 16:34 Dose: 75 mls/hr Influenza Virus Vaccine (Pharmacy To Dose - Influenza Vaccine) 1 each IM ONETIME ONE Stop: 08/25/17 07:58 Influenza Virus Vaccine (Fluzone High-Dose ) 180 mcg IM .ONCE ONE Stop: 08/25/17 08:16 Lorazepam (Ativan) 0.5 mg IVPUSH ONETIME ONE Stop: 08/23/17 00:15 Last Admin: 08/23/17 00:20 Dose: 0.5 mg Magnesium Hydroxide (Milk Of Magnesia) 30 ml PO ONETIME ONE Stop: 08/25/17 23:16 Last Admin: 08/25/17 23:35 Dose: 30 ml Ondansetron HCl (Zofran) 4 mg IVPUSH ONETIME ONE Stop: 08/22/17 21:48 Last Admin: 08/22/17 21:58 Dose: 4 mg Temazepam (Restoril) 15 mg PO ONETIME ONE Stop: 08/23/17 21:39 Last Admin: 08/23/17 21:51 Dose: 15 mg - Exam Quality Assessment: Reports: DVT Prophylaxis General: Reports: Alert, Cooperative, No Acute Distress (pleasant, talkative, good sense of humor) HEENT: Reports: Pupils Equal, EOMI, Mucous Membr. Moist/[place] Neck: Reports: Supple Lungs: Reports: Clear to Auscultation, Normal Respiratory Effort Cardiovascular: Reports: Regular Rate, Regular Rhythm GI/Abdominal Exam: Normal Bowel Sounds, Soft, Non-Tender (Female) Exam: Deferred Rectal (Female) Exam: Deferred Extremities: Normal Inspection, No Pedal Edema, Normal Capillary Refill Neurological: Reports: Normal Speech, Normal Tone, Strength Equal Bilateral, Reflexes Equal Bilateral, Other (dementia; confused as to place and time) Psy/Mental Status: Reports: Alert, Normal Affect, Normal Mood (talkative, humorous) *Q Meaningful Use (DIS) - VTE *Q VTE Criteria *Q: - Stroke *Q Stroke Criteria *Q: - AMI *Q AMI Criteria *Q:
[2017-08-26] MEDS: RIVASTIGMINE 4.6 MG TRDERM SCH (08:42)
== END 2017-08-26 10:05 | disposition home or self-care (01) | DRG 312 ==
LOC: JD.ED 21:05 → JD.MS 08-23 00:19 → UNDOADMOB 08-23 00:19 → JD.MS 08-23 00:57 → OBSVTOIN 08-23 13:10
PROVIDERS: ADMIT Internal Medicine Cardiovascular Disease; ATTEND Internal Medicine Cardiovascular Disease
PROC: 3E0234Z Introduction of Serum, Toxoid and Vaccine into Muscle, Percutaneous Approach (ICD-10-PCS; principal; 2017-08-26)
DX: R55 Syncope and collapse (principal); R00.1 Bradycardia, unspecified; R11.2 Nausea with vomiting, unspecified; R53.1 Weakness; G30.9 Alzheimer's disease, unspecified; F02.80 Dementia in other diseases classified elsewhere, unspecified severity, without behavioral disturbance, psychotic disturbance, mood disturbance, and anxiety; F32.9 Major depressive disorder, single episode, unspecified; F41.9 Anxiety disorder, unspecified; Z23 Encounter for immunization; F01.50 Vascular dementia, unspecified severity, without behavioral disturbance, psychotic disturbance, mood disturbance, and anxiety; Z79.899 Other long term (current) drug therapy
CPT/HCPCS: 71010; 96361; 99284; 93005; 96374; 96375; 85025; 85027; 81001; 36415 ×2; 82962; 80053; 80048; 83735 ×2; 84484 ×2; 83880; 84443; 87086; J2060; J7040 ×2; J7050; J2405; 80061; 82306; 86140; 86738; 90715; 96125-GN; 97161-GP; 97165-GO; A9270-GY

== ENCOUNTER 2018-06-22 09:10 | Emergency (ER) | payer MEDICARE, OTHER ==
[2018-06-22] MEDS ORDERED: Oxymetazoline 0.05% Nasal Spray 15 ML Bottle NAS ONE (09:30)
--- NOTE | 2018-06-22 11:18 | EDM.PDOC ---
ED HPI GENERAL MEDICAL PROBLEM - General Chief Complaint: ENT Problem Stated Complaint: NOSE BLEED Time Seen by Provider: 06/22/18 09:25 Source of Information: Reports: Patient, Family History Limitations: Reports: No Limitations - History of Present Illness INITIAL COMMENTS - FREE TEXT/NARRATIVE: The patient presents from assisted living for a nose bleed. This started this morning. She had no trauma to her nose. She is not on any blood thinners and she does not have high blood pressure now. The bleeding is from the right nare. 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: Psychiatric History: Reports: Anxiety Social & Family History - Family History Family Medical History: Noncontributory - Tobacco Use Smoking Status *Q: Never Smoker Second Hand Smoke Exposure: No - Caffeine Use Caffeine Use: Reports: Coffee Other Caffeine Use: 1 or 2 cups every day - Recreational Drug Use Recreational Drug Use: No ED ROS ENT - Review of Systems Review Of Systems: See Below Constitutional: Reports: No Symptoms HEENT: Reports: Nosebleed Respiratory: Reports: No Symptoms Cardiovascular: Reports: No Symptoms Endocrine: Reports: No Symptoms GI/Abdominal: Reports: No Symptoms : Reports: No Symptoms ED EXAM, ENT - Physical Exam Exam: See Below Exam Limited By: No Limitations General Appearance: Alert, No Apparent Distress Ears: Normal External Exam Nose: Active Bleeding (very minimal bleeding from the anterior septum) Mouth/Throat: Normal Inspection Head: Atraumatic, Normocephalic Neck: Normal Inspection Respiratory/Chest: No Respiratory Distress ED ENT PROCEDURES - Epistaxis Procedure Indication: Epistaxis Recent anticoagulants/antiplatlets: No Uncontrolled HTN: No Recent septal/nasal surgery: No Site of bleeding: Right Nare Clearing of clots: Patient Blew Nose Topical Meds: Other (Afrin) Ice pack to area: No Chemical cautery: Silver Nitrate Topical Complications: No Course - Vital Signs Last Recorded V/S: Last Vital Signs Temp 98.2 F 06/22/18 09:15 Pulse 84 06/22/18 09:15 Resp 16 06/22/18 09:15 BP 144/80 H 06/22/18 09:15 Pulse Ox 97 06/22/18 09:15 - Orders/Labs/Meds Meds: Medications Discontinued Medications Generic Name Dose Route Start Last Admin Trade Name Niok PRN Reason Stop Dose Admin Oxymetazoline HCl 1 ml 06/22/18 09:30 06/22/18 09:35 Afrin Original 0.05% Nasal Drasco ALESSANDRO 06/22/18 09:31 1 each ONETIME ONE Administration - Re-Assessments/Exams Free Text/Narrative Re-Assessment/Exam: 06/22/18 11:23 The patient had no more bleeding after silver nitrate applications. I will discharge her home. Departure - Departure Time of Disposition: 11:25 Disposition: Home, Self-Care 01 Condition: Good Clinical Impression: Epistaxis - Discharge Information *PRESCRIPTION DRUG MONITORING PROGRAM REVIEWED*: Not Applicable *COPY OF PRESCRIPTION DRUG MONITORING REPORT IN PATIENT LY: Not Applicable Referrals: Trav Díaz MD [Primary Care Provider] - Forms: ED Department Discharge Additional Instructions: Put antibiotic ointment in each nostril 2 times per day for 3 days. Please return if you are worse.
== END 2018-06-22 11:40 | disposition home or self-care (01) ==
LOC: JD.ED 09:10
DX: R04.0 Epistaxis (principal)
CPT/HCPCS: 30901; 99283; A9270